=== PATIENT | male | born 1940 | race Caucasian/White ===

== ENCOUNTER 2017-02-06 09:58 | Observation (INO) | payer MEDICARE, BC ==
[2017-02-06] VITALS (10 sets, daily range): BP systolic 122–174; BP diastolic 50–86; PULSE 66–82; TEMP 97.5–98.7
[~2017-02-06] VITALS: Ht 170.2 cm; Wt 87.3 kg
[2017-02-06] MEDS ORDERED: LANTUS SOLOS100 U/ML SQ (11:30)
[2017-02-06] MEDS ORDERED: NOVOLOG FLEX100 U/ML SQ (11:32)
[2017-02-06] MEDS ORDERED: ASPIRIN 81M81 MG/TA2 PO (11:32)
[2017-02-06] MEDS ORDERED: VICTOZA6 MG/ML SQ (11:32)
[2017-02-06] MEDS ORDERED: PLAVIX 75MG TAB75 MG PO (11:33)
[2017-02-06] MEDS ORDERED: PRAVACHOL 20MG20 MG PO (11:34)
[2017-02-06] MEDS ORDERED: CARDIZEM CD 30300 MG PO (11:34)
[2017-02-06] MEDS ORDERED: ZYRTEC 10MG10 MG PO (11:35)
[2017-02-06] MEDS ORDERED: SINGULAIR 110 MG/TAB PO (11:36)
[2017-02-06] MEDS ORDERED: DULERA1 AR1 IH (11:36)
[2017-02-06] MEDS ORDERED: VITAMIND3 5000 PO (11:37)
[2017-02-07 05:28] VITALS: BP 154/68; PULSE 74; TEMP 98.1
[2017-02-07 06:44] LABS: BASO % 0.1 % (0.0-2.0); GRAN # 8.6 (1.4-6.5); GRAN % 78.5 % (42.2-75.2); HEMOGLOBIN 12.2 g/dl (13.5-18.0); LYMPH # 1.5 (1.2-3.4); LYMPH % 13.4 % (20.0-51.0); MEAN CELL VOLUME 91 fl (80.0-100.0); MEAN CORPUSCULAR HEMOGLOBIN 31 pg (27.0-31.0); MEAN CORPUSCULAR HGB CONC 34 g/dl (33.0-37.0); MEAN PLATELET VOLUME 11.5 fl (7.4-10.4); MONO # 0.8 (0.1-0.6); MONO % 7.2 % (1.7-9.3); PLATELET COUNT 274 K/mm3 (130-400); RED BLOOD COUNT 3.98 M/mm3 (4.20-5.60); REDCELL DISTRIBUTION WIDTH-CV 13.5 % (11.5-14.5)
[2017-02-07 06:47] LABS: HEMATOCRIT 36.2 % (42.0-52.0)
[2017-02-07 09:56] VITALS: BP 151/57; PULSE 77; TEMP 97.6
== END 2017-02-07 12:20 | disposition home or self-care (01) ==
LOC: MEDICAL 09:58 → SURG 11:04
PROVIDERS: Urology
DX: R31.0 Gross hematuria (principal); E11.51 Type 2 diabetes mellitus with diabetic peripheral angiopathy without gangrene; Z79.4 Long term (current) use of insulin; I10 Essential (primary) hypertension; K21.9 Gastro-esophageal reflux disease without esophagitis; J44.9 Chronic obstructive pulmonary disease, unspecified; Z86.73 Personal history of transient ischemic attack (TIA), and cerebral infarction without residual deficits; Z92.3 Personal history of irradiation; Z85.46 Personal history of malignant neoplasm of prostate; F17.210 Nicotine dependence, cigarettes, uncomplicated; Z95.828 Presence of other vascular implants and grafts
CPT/HCPCS: G0378; G0379; J0690; J1100; J1815; J2405; J2704; J3010; Q9967

== ENCOUNTER 2017-03-05 08:47 | Inpatient (IN) | payer MEDICARE, BC ==
[~2017-03-05] VITALS: Ht 170.2 cm; Wt 88.2 kg
[~2017-03-05 08:47] MED LIST: ASPIRIN 81M81 MG/TA2 PO; CARDIZEM CD 30300 MG PO; DULERA1 AR1 IH; LANTUS SOLOS100 U/ML SQ; NOVOLOG FLEX100 U/ML SQ; PLAVIX 75MG TAB75 MG PO; PRAVACHOL 20MG20 MG PO; SINGULAIR 110 MG/TAB PO; VICTOZA6 MG/ML SQ; VITAMIND3 5000 PO; ZYRTEC 10MG10 MG PO
[2017-03-05 10:46] VITALS: BP 169/80; PULSE 81; TEMP 97.9
[2017-03-05 14:00] VITALS: BP 164/71; PULSE 71; TEMP 99.1
[2017-03-05 15:35] VITALS: BP 164/71; PULSE 71; TEMP 99.1
[2017-03-05 18:12] VITALS: BP 167/77; PULSE 89; TEMP 98.3
[2017-03-05 20:27] LABS: PH 6 (5-8); SQUAMOUS EPITHELIAL None Seen /hpf; URINE APPEARANCE Hazy; URINE BACTERIA None Seen /hpf; URINE BILIRUBIN Negative (NEGATIVE); URINE BLOOD 3+ (NEGATIVE); URINE COLOR Red; URINE GLUCOSE 3+ (NEGATIVE); URINE KETONE Trace (NEGATIVE); URINE RBC >50 /hpf; URINE UROBILINOGEN Negative (NEGATIVE)
[2017-03-05 21:00] VITALS: BP 179/83; PULSE 79; TEMP 98.1
[2017-03-06] VITALS (12 sets, daily range): BP systolic 140–176; BP diastolic 58–89; PULSE 63–96; TEMP 97.5–98.6
[2017-03-06 08:03] LABS: MEAN CELL VOLUME 92 fl (80.0-100.0); MEAN CORPUSCULAR HGB CONC 34 g/dl (33.0-37.0); PLATELET COUNT 267 K/mm3 (130-400); RED BLOOD COUNT 3.46 M/mm3 (4.20-5.60); REDCELL DISTRIBUTION WIDTH-CV 14.6 % (11.5-14.5); WHITE BLOOD COUNT 10.9 K/mm3 (4.8-10.8)
[2017-03-06 08:04] LABS: HEMATOCRIT 31.7 % (42.0-52.0); HEMOGLOBIN 10.8 g/dl (13.5-18.0); MEAN CORPUSCULAR HEMOGLOBIN 31 pg (27.0-31.0)
[2017-03-06] MEDS ORDERED: NOVOLOG FLEX100 U/ML (11:11)
[2017-03-06] MEDS ORDERED: BENEFIBER (11:20)
[2017-03-07 02:33] VITALS: BP 142/51; PULSE 82; TEMP 98.2
[2017-03-07 05:59] VITALS: BP 153/61; PULSE 89; TEMP 99.1
[2017-03-07 09:00] VITALS: BP 159/58; PULSE 81; TEMP 98.2
[2017-03-07 14:07] VITALS: BP 143/53; PULSE 60; TEMP 98.3
== END 2017-03-07 15:57 | disposition home or self-care (01) | DRG 664 ==
LOC: SURG 08:47
PROVIDERS: Urology
PROC: 0W3R8ZZ Control Bleeding in Genitourinary Tract, Via Natural or Artificial Opening Endoscopic (ICD-10-PCS; 2017-03-06)
PROC: 0T5B8ZZ Destruction of Bladder, Via Natural or Artificial Opening Endoscopic (ICD-10-PCS; 2017-03-06)
PROC: 0T5C8ZZ Destruction of Bladder Neck, Via Natural or Artificial Opening Endoscopic (ICD-10-PCS; 2017-03-06)
PROC: 0TCB8ZZ Extirpation of Matter from Bladder, Via Natural or Artificial Opening Endoscopic (ICD-10-PCS; principal; 2017-03-06 10:00)
DX: N30.41 Irradiation cystitis with hematuria (principal); N32.89 Other specified disorders of bladder; I10 Essential (primary) hypertension; E11.9 Type 2 diabetes mellitus without complications; Z85.46 Personal history of malignant neoplasm of prostate; Z86.73 Personal history of transient ischemic attack (TIA), and cerebral infarction without residual deficits; Z79.4 Long term (current) use of insulin
CPT/HCPCS: OP; G0378; J0690; J1815; J2405; J2704; J3010; J3480; J7120

== ENCOUNTER → 2018-07-06 | Outpatient (CLI) | payer MEDICARE, BC ==
[~2018-07-06] MED LIST changes: +BENEFIBER; +NOVOLOG FLEX100 U/ML
== END ==
LOC: COL.RAD 10:58
DX: G58.8 Other specified mononeuropathies (principal)